=== PATIENT | female | born 1995 | race Two or more races ===

== ENCOUNTER 2019-08-27 10:32 | Observation (INO) | payer SELFPAY ==
[2019-08-27] MEDS ORDERED: IV RINGERS,LACTATED 1000ML 1,000 ML IV SCH (10:48)
[2019-08-27 11:09] LABS: BILIRUBIN,URINE NEGATIVE (NEG); CLARITY,URINE CLEAR; COLOR,URINE YELLOW; NITRITE,URINE NEGATIVE (NEG); PH,URINE 6.5; PROTEIN,URINE NEGATIVE (NEG-TRACE); UROBILINOGEN,URINE 0.2 mg/dL (0.2 mg/dL)
[2019-08-27 11:17] LABS: SQUAMOUS EPITHELIAL CELL,UR MANY /LPF
[2019-08-27 11:18] LABS: BACTERIA,URINE FEW /HPF (0-FEW); RBC,URINE RARE /HPF (0-2)
== END 2019-08-27 17:04 | disposition home or self-care (01) ==
LOC: 3 SO LND 10:32
PROVIDERS: ADMIT Obstetrics & Gynecology; ATTEND Obstetrics & Gynecology
DX: O62.9 Abnormality of forces of labor, unspecified (principal); Z3A.37 37 weeks gestation of pregnancy
CPT/HCPCS: 81001; G0378; G0379

== ENCOUNTER 2019-08-27 22:47 | Observation (INO) | payer SELFPAY ==
[2019-08-27] MEDS ORDERED: ACETAMINOPHEN 325 MG TABLET. PO PRN (23:00)
[2019-08-27] MEDS ORDERED: IV RINGERS,LACTATED 1000ML 1,000 ML IV SCH (23:00)
[2019-08-27] MEDS ORDERED: IV NORMAL SALINE 1000ML BAG 1,000 ML IV SCH (23:00)
[2019-08-27 23:09] LABS: BILIRUBIN,URINE NEGATIVE (NEG); CLARITY,URINE CLOUDY; COLOR,URINE YELLOW; NITRITE,URINE NEGATIVE (NEG); PROTEIN,URINE NEGATIVE (NEG-TRACE)
[2019-08-27 23:14] LABS: SQUAMOUS EPITHELIAL CELL,UR MOD /LPF
[2019-08-27 23:15] LABS: BACTERIA,URINE MODERATE /HPF (0-FEW)
[2019-08-27] MEDS ORDERED: ACETAMINOPHEN 500 MG TABLET PO PRN (23:30)
[2019-08-28] MEDS ORDERED: hydrOXYzine 25 MG TABLET PO PRN ×2 (04:30→04:45)
== END 2019-08-28 04:59 | disposition home or self-care (01) ==
LOC: 3 SO LND 22:47
PROVIDERS: ADMIT Obstetrics & Gynecology; ATTEND Obstetrics & Gynecology
DX: O62.9 Abnormality of forces of labor, unspecified (principal); Z3A.37 37 weeks gestation of pregnancy
CPT/HCPCS: 81001; 87086; G0378; G0379; J7120

== ENCOUNTER 2019-08-29 00:12 | Observation (INO) | payer SELFPAY ==
[2019-08-29] MEDS ORDERED: IV RINGERS,LACTATED 1000ML 1,000 ML IV SCH (00:30)
[2019-08-29 00:51] LABS: BILIRUBIN,URINE NEGATIVE (NEG); CLARITY,URINE CLEAR; COLOR,URINE YELLOW; NITRITE,URINE NEGATIVE (NEG); PROTEIN,URINE NEGATIVE (NEG-TRACE); UROBILINOGEN,URINE 0.2 mg/dL (0.2 mg/dL)
[2019-08-29 01:07] LABS: BACTERIA,URINE MANY /HPF (0-FEW); RBC,URINE OCC /HPF (0-2); SQUAMOUS EPITHELIAL CELL,UR MOD /LPF
[2019-08-29] MEDS ORDERED: ACETAMINOPHEN 500 MG TABLET PO ONE (01:30)
== END 2019-08-29 01:52 | disposition home or self-care (01) ==
LOC: 3 SO LND 00:12
PROVIDERS: ADMIT Obstetrics & Gynecology; ATTEND Obstetrics & Gynecology
DX: O62.9 Abnormality of forces of labor, unspecified (principal); Z3A.37 37 weeks gestation of pregnancy
CPT/HCPCS: 81001; 87086; G0378; G0379

== ENCOUNTER 2019-08-29 13:28 | Inpatient (IN) | payer SELFPAY ==
[~2019-08-29] VITALS: Ht 165.1 cm; Wt 70.3 kg
[2019-08-29] MEDS ORDERED: IV RINGERS,LACTATED 1000ML 1,000 ML IV SCH (13:40)
[2019-08-29] MEDS ORDERED: 0.9 % SODIUM CHLORIDE 10 ML DISP.SYRIN. IV PRN ×2 (13:45→16:00)
[2019-08-29] MEDS ORDERED: OXYTOCIN 30 UNIT/500 ML PREMIX 500 ML IV PRN ×3 (13:45→16:00)
[2019-08-29] MEDS ORDERED: ONDANSETRON PF 4 MG/2 ML VIAL. IV PRN (13:45)
[2019-08-29] MEDS ORDERED: NALBUPHINE 10 MG/ML AMPUL. IV PRN (13:45)
[2019-08-29] MEDS ORDERED: miSOPROStol 200 MCG TABLET PR PRN (13:45)
[2019-08-29] MEDS ORDERED: LIDOCAINE 1% PF 30 ML VIAL. INJ PRN (13:45)
[2019-08-29] MEDS ORDERED: fentaNYL PF VIAL 100 MCG/2 ML VIAL IV PRN (13:45)
[2019-08-29] MEDS ORDERED: TERBUTALINE 1 MG/ML VIAL. IV PRN (13:45)
[2019-08-29] MEDS ORDERED: CITRIC ACID/SODIUM CITRATE 30 ML SOLUTION. PO PRN (13:45)
[2019-08-29] MEDS ORDERED: MAG HYDROX/ALUMINUM HYD/SIMETH 30 ML ORAL.SUSP PO PRN ×2 (13:45→16:00)
[2019-08-29 14:17] LABS: BASO % 0 % (0-3); EOS % 0 % (0-3); HEMATOCRIT 35.6 % (36.0-47.0); HEMOGLOBIN 12.1 g/dL (12.0-15.5); LYMPH # 0.7 x10^3/uL (1.0-4.8); LYMPH % 5 % (24-48); MEAN CORPUSCULAR HEMOGLOBIN 31 pg (25-35); MEAN CORPUSCULAR HGB CONC 34 g/dL (31-37); MEAN CORPUSCULAR VOLUME 92 fL (79-100); MONO # 0.7 x10^3/uL (0.0-1.1); MONO % 5 % (0-9); NEUT # 12.9 x10^3/uL (1.8-7.7); NEUT % 90 % (31-73); PLATELET COUNT 218 x10^3/uL (140-400); RED BLOOD COUNT 3.88 x10^6/uL (3.50-5.40); RED CELL DISTRIBUTION WIDTH 13.4 % (11.5-14.5); WHITE BLOOD COUNT 14.3 x10^3/uL (4.0-11.0)
[2019-08-29 15:14] LABS: % BANDS 4 % (0-9); % LYMPHS 4 % (24-48); % METAS 1 % (0-0); % MONOS 2 % (0-10); % MYELOS 1 % (0-0); % SEGS 88 % (35-66)
[2019-08-29 15:15] LABS: PLT ESTIMATE ADEQUATE (ADEQUATE)
[2019-08-29 15:16] LABS: TOXIC GRANULATION SLIGHT
--- NOTE | 2019-08-29 15:54 | PDOC1 ---
OB - History Hx of Present Care: Good Care Ultrasounds: Normal mid trimester US Obstetrical Complications: None Medical Complications: None Past Family/Social History * Past Medical, Surgical, Family and Obstetric Histories reviewed from chart. Rubella: Immune RPR/VDRL: Negative GBS Status: Negative HBsAG: Negative OB - Chief Complaint & HPI Date of Admission: Date of Admission: Aug 29, 2019 at 13:28 Chief Complaint/History : 1 Para: 0 EGA: 37 Reason for admission: active labor Admission Nurse Assessment Rev: Yes OB - Admission Exam Physical Exam HEENT: Normal Heart: Regular Rate Lungs: Clear Abdomen: Gravid, Non tender, Soft Extremities: Edema Reflexes: Normal Cervical Dilatation: 5cm Effacement: 75% Station: -2 Membranes: Intact Accelerations: Accelerations Present Decelerations: No decelerations Contractions on Admission: < 5 Minutes Apart Intensity: Firm Text A: 37 wks IUP Active labor P: Admit labor management. ANJEL SPIVEY Jr, MD Aug 29, 2019 15:54
--- NOTE | 2019-08-29 15:55 | PDOC ---
VAGINAL DELIVERY DATE DATE: 08/29/19 TIME: 15:54 : 1 Para: 1 EGA: 37 VAGINAL DELIVERY: VTX VACCUM ASSISTED: No PLACENTA: Spontaneous 8/9 SEX: Female WEIGHT Weight [ 2390 gm] Nuchal Cord: No Amniotic Fluid: Clear PAIN: Natural EPISIOTOMY: Yes (2nd degree episiotomy) EXTENSION: No REPAIRED WITH 2-0 vicryl EBL 400 ml COMPLICATIONS none CONDITION pt. stable Signs of Intrauterine Infectio: None Shoulder Dystocia: No ANJEL SPIVEY Jr, MD Aug 29, 2019 15:55
[2019-08-29] MEDS ORDERED: DOCUSATE SODIUM 100 MG CAPSULE. PO PRN (16:00)
[2019-08-29] MEDS ORDERED: HYDROCORTISONE 1% TOPICAL OINTMENT 30GM TUBE. TP PRN (16:00)
[2019-08-29] MEDS ORDERED: diphenhydrAMINE HCL 25 MG CAPSULE PO PRN (16:00)
[2019-08-29] MEDS ORDERED: PHENYLEPH/MINERAL OIL/PETROLAT RECTAL OINTMENT TUBE. RC PRN (16:00)
[2019-08-29] MEDS ORDERED: oxyCODONE/APAP 5/325 1 TAB TABLET PO PRN (16:00)
[2019-08-29] MEDS ORDERED: ZOLPIDEM 5 MG TABLET. PO PRN (16:00)
[2019-08-29] MEDS ORDERED: MMR per PROTOCOL. MC PRN (16:00)
[2019-08-29] MEDS ORDERED: BENZOCAINE 20% TOPICAL AEROSOL SPRAY 57GM CAN. TP PRN (16:00)
[2019-08-29] MEDS ORDERED: ACETAMINOPHEN 325 MG TABLET. PO PRN (16:00)
[2019-08-29] MEDS ORDERED: SIMETHICONE 80 MG TAB.CHEW PO PRN (16:00)
[2019-08-29] MEDS ORDERED: MAGNESIUM HYDROXIDE 2,400 MG/30 ML ORAL.SUSP. PO PRN (16:00)
[2019-08-29] MEDS ORDERED: IBUPROFEN 400 MG TABLET. PO PRN (16:00)
[2019-08-29] MEDS: IBUPROFEN 400 MG TABLET. PO PRN (16:02)
[2019-08-29 21:00] VITALS: BP 104/60
[2019-08-30 01:50] VITALS: BP 105/62
[2019-08-30 05:55] LABS: BASO % 0 % (0-3); EOS # 0.1 x10^3/uL (0.0-0.7); EOS % 1 % (0-3); HEMATOCRIT 29.6 % (36.0-47.0); HEMOGLOBIN 10.1 g/dL (12.0-15.5); LYMPH # 1.7 x10^3/uL (1.0-4.8); LYMPH % 19 % (24-48); MEAN CORPUSCULAR HEMOGLOBIN 32 pg (25-35); MEAN CORPUSCULAR HGB CONC 34 g/dL (31-37); MEAN CORPUSCULAR VOLUME 92 fL (79-100); MONO # 0.8 x10^3/uL (0.0-1.1); MONO % 8 % (0-9); NEUT # 6.5 x10^3/uL (1.8-7.7); NEUT % 72 % (31-73); PLATELET COUNT 175 x10^3/uL (140-400); RED BLOOD COUNT 3.21 x10^6/uL (3.50-5.40); RED CELL DISTRIBUTION WIDTH 13.5 % (11.5-14.5); WHITE BLOOD COUNT 9.1 x10^3/uL (4.0-11.0)
[2019-08-30] MEDS: IBUPROFEN 400 MG TABLET. PO PRN ×2 (05:57→15:21)
[2019-08-30 06:02] VITALS: BP 110/69
[2019-08-30] MEDS ORDERED: FERROUS SULFATE 325 MG TABLET. PO SCH (08:00)
--- NOTE | 2019-08-30 13:32 | PDOC ---
OB Progress Note Date of Service 08/30/19 Time of Evaluation 1330 Notes Pt. feeling well. No complaints. Lab Laboratory Tests Test 08/29/19 13:53 08/30/19 05:30 White Blood Count 14.3 x10^3/uL (4.0-11.0) 9.1 x10^3/uL (4.0-11.0) Red Blood Count 3.88 x10^6/uL (3.50-5.40) 3.21 x10^6/uL (3.50-5.40) Hemoglobin 12.1 g/dL (12.0-15.5) 10.1 g/dL (12.0-15.5) Hematocrit 35.6 % (36.0-47.0) 29.6 % (36.0-47.0) Mean Corpuscular Volume 92 fL (79-100) 92 fL (79-100) Mean Corpuscular Hemoglobin 31 pg (25-35) 32 pg (25-35) Mean Corpuscular Hemoglobin Concent 34 g/dL (31-37) 34 g/dL (31-37) Red Cell Distribution Width 13.4 % (11.5-14.5) 13.5 % (11.5-14.5) Platelet Count 218 x10^3/uL (140-400) 175 x10^3/uL (140-400) Neutrophils (%) (Auto) 90 % (31-73) 72 % (31-73) Lymphocytes (%) (Auto) 5 % (24-48) 19 % (24-48) Monocytes (%) (Auto) 5 % (0-9) 8 % (0-9) Eosinophils (%) (Auto) 0 % (0-3) 1 % (0-3) Basophils (%) (Auto) 0 % (0-3) 0 % (0-3) Neutrophils # (Auto) 12.9 x10^3/uL (1.8-7.7) 6.5 x10^3/uL (1.8-7.7) Lymphocytes # (Auto) 0.7 x10^3/uL (1.0-4.8) 1.7 x10^3/uL (1.0-4.8) Monocytes # (Auto) 0.7 x10^3/uL (0.0-1.1) 0.8 x10^3/uL (0.0-1.1) Eosinophils # (Auto) 0.0 x10^3/uL (0.0-0.7) 0.1 x10^3/uL (0.0-0.7) Basophils # (Auto) 0.0 x10^3/uL (0.0-0.2) 0.0 x10^3/uL (0.0-0.2) Segmented Neutrophils % 88 % (35-66) Band Neutrophils % 4 % (0-9) Lymphocytes % 4 % (24-48) Monocytes % 2 % (0-10) Metamyelocytes % 1 % (0-0) Myelocytes % 1 % (0-0) Toxic Granulation Slight Platelet Estimate Adequate (ADEQUATE) Treponema pallidum Antibody Nonreactive (Nonreactive) Laboratory Tests Test 08/29/19 13:53 08/30/19 05:30 White Blood Count 14.3 x10^3/uL (4.0-11.0) 9.1 x10^3/uL (4.0-11.0) Red Blood Count 3.88 x10^6/uL (3.50-5.40) 3.21 x10^6/uL (3.50-5.40) Hemoglobin 12.1 g/dL (12.0-15.5) 10.1 g/dL (12.0-15.5) Hematocrit 35.6 % (36.0-47.0) 29.6 % (36.0-47.0) Mean Corpuscular Volume 92 fL (79-100) 92 fL (79-100) Mean Corpuscular Hemoglobin 31 pg (25-35) 32 pg (25-35) Mean Corpuscular Hemoglobin Concent 34 g/dL (31-37) 34 g/dL (31-37) Red Cell Distribution Width 13.4 % (11.5-14.5) 13.5 % (11.5-14.5) Platelet Count 218 x10^3/uL (140-400) 175 x10^3/uL (140-400) Neutrophils (%) (Auto) 90 % (31-73) 72 % (31-73) Lymphocytes (%) (Auto) 5 % (24-48) 19 % (24-48) Monocytes (%) (Auto) 5 % (0-9) 8 % (0-9) Eosinophils (%) (Auto) 0 % (0-3) 1 % (0-3) Basophils (%) (Auto) 0 % (0-3) 0 % (0-3) Neutrophils # (Auto) 12.9 x10^3/uL (1.8-7.7) 6.5 x10^3/uL (1.8-7.7) Lymphocytes # (Auto) 0.7 x10^3/uL (1.0-4.8) 1.7 x10^3/uL (1.0-4.8) Monocytes # (Auto) 0.7 x10^3/uL (0.0-1.1) 0.8 x10^3/uL (0.0-1.1) Eosinophils # (Auto) 0.0 x10^3/uL (0.0-0.7) 0.1 x10^3/uL (0.0-0.7) Basophils # (Auto) 0.0 x10^3/uL (0.0-0.2) 0.0 x10^3/uL (0.0-0.2) Segmented Neutrophils % 88 % (35-66) Band Neutrophils % 4 % (0-9) Lymphocytes % 4 % (24-48) Monocytes % 2 % (0-10) Metamyelocytes % 1 % (0-0) Myelocytes % 1 % (0-0) Toxic Granulation Slight Platelet Estimate Adequate (ADEQUATE) Treponema pallidum Antibody Nonreactive (Nonreactive) Medications Current Medications Sodium Chloride (Normal Saline Flush) 3 ml QSHIFT PRN IV AFTER MEDS AND BLOOD DRAWS; Start 08/29/19 at 13:45 Ringer's Solution 1,000 ml @ 125 mls/hr Q8H IV Last administered on 08/29/19at 14:12; Start 08/29/19 at 13:40 Nalbuphine HCl (Nubain) 10 mg PRN Q1HR PRN IV Severe labor pain; Start 08/29/19 at 13:45 Fentanyl Citrate (Fentanyl 2ml Vial) 100 mcg PRN Q30MIN PRN IV Severe pain Last administered on 08/29/19at 14:11; Start 08/29/19 at 13:45 Ondansetron HCl (Zofran) 4 mg PRN Q4HRS PRN IV NAUSEA/VOMITING; Start 08/29/19 at 13:45 Al Hydroxide/Mg Hydroxide (Mylanta Plus Xs) 30 ml PRN Q4HRS PRN PO HEARTBURN / GAS; Start 08/29/19 at 13:45 Citric Acid/ Sodium Citrate (Bicitra) 30 ml 1X PRN PRN PO DYSPEPSIA; Start 08/29/19 at 13:45; Stop 08/30/19 at 13:44 Terbutaline Sulfate (Brethine) 0.25 mg 1X PRN PRN IV SEE COMMENTS; Start 08/29/19 at 13:45; Stop 08/30/19 at 13:44 Lidocaine HCl (Xylocaine 1% Pf 30ml Vial) 30 ml 1X PRN PRN INJ SEE COMMENTS Last administered on 08/29/19at 16:03; Start 08/29/19 at 13:45; Stop 08/31/19 at 13:44 Oxytocin/Sodium Chloride 500 ml @ 0 mls/hr CONT PRN IV SEE I/O RECORD Last administered on 08/29/19at 16:02; Start 08/29/19 at 13:45 Oxytocin/Sodium Chloride 500 ml @ 0 mls/hr CONT PRN PRN IV Post delivery bleeding; Start 08/29/19 at 13:45 Ibuprofen (Motrin) 800 mg PRN Q6HRS PRN PO PAIN Last administered on 08/30/19at 05:57; Start 08/29/19 at 13:45 Misoprostol (Cytotec 200mcg Tab) 800 mcg 1X PRN NC BLEEDING; Start 08/29/19 at 13:45 Sodium Chloride (Normal Saline Flush) 10 ml QSHIFT PRN IV AFTER MEDS AND BLOOD DRAWS; Start 08/29/19 at 16:00 Oxytocin/Sodium Chloride 500 ml @ 62.5 mls/hr CONT PRN IV SEE I/O RECORD; Start 08/29/19 at 16:00; Stop 08/29/19 at 23:59; Status DC Acetaminophen (Tylenol) 650 mg PRN Q6HRS PRN PO MILD PAIN / TEMP; Start 08/29/19 at 16:00 Ibuprofen (Motrin) 800 mg PRN Q8HRS PRN PO INFLAMMATION/PAIN PREVENTION; Start 08/29/19 at 16:00 Docusate Sodium (Colace) 100 mg PRN BID PRN PO HARD STOOLS; Start 08/29/19 at 16:00 Magnesium Hydroxide (Milk Of Magnesia) 2,400 mg PRN DAILY PRN PO CONSTIPATION; Start 08/29/19 at 16:00 Al Hydroxide/Mg Hydroxide (Mylanta Plus Xs) 30 ml PRN Q4HRS PRN PO HEARTBURN / GAS; Start 08/29/19 at 16:00 Simethicone (Gas-X) 80 mg PRN AFTMEALHC PRN PO GAS / BLOATING; Start 08/29/19 at 16:00 Diphenhydramine HCl (Benadryl) 25 mg PRN Q6HRS PRN PO ITCHING; Start 08/29/19 at 16:00 Benzocaine (Americaine) 1 spray PRN QID PRN TP TOPICAL PAIN; Start 08/29/19 at 16:00 Phenyleph/Shark Oil/Min Oil/Petrol (Preparation H) 1 gabi PRN QID PRN RC RECTAL PAIN; Start 08/29/19 at 16:00 Hydrocortisone (Cortaid) 1 gabi PRN QID PRN TP PERINEAL PAIN; Start 08/29/19 at 16:00 Ferrous Sulfate (Feosol) 325 mg BIDWMEALS PO ; Start 08/30/19 at 08:00 Zolpidem Tartrate (Ambien) 5 mg PRN QHS PRN PO INSOMNIA, MAY REPEAT X1; Start 08/29/19 at 16:00 Info (Do NOT chart on this placeholder) 1 ea 1X PRN PRN MC SEE COMMENTS; Start 08/29/19 at 16:00 Info (Do NOT chart on this placeholder) 1 ea 1X PRN PRN MC SEE COMMENTS; Start 08/29/19 at 16:00 Oxycodone/ Acetaminophen (Percocet 5/325) 2 tab PRN Q4HRS PRN PO MODERATE PAIN, SEVERE PAIN Last administered on 08/29/19at 17:23; Start 08/29/19 at 16:00 Exam Abd: soft, non tender, fundus firm Assessment PPD#1 s/p VD Plan of Care: Continue current Tx, Mgmt ANJEL SPIVEY Jr, MD Aug 30, 2019 13:32
[2019-08-30 17:23] VITALS: BP 117/68
[2019-08-30] MEDS ORDERED: FLU VAX QS 2019-20 (36MOS+)/PF 0.5 ML SYRINGE. VAX IM ONE (17:30)
[2019-08-30 20:00] VITALS: BP 145/83
[2019-08-31 05:20] VITALS: BP 106/55
[2019-08-31] MEDS: IBUPROFEN 400 MG TABLET. PO PRN (09:20)
--- NOTE | 2019-08-31 10:38 | NUR ---
Patient received Flu vaccine at [facility] Addendum: 08/31/19 at 1039 by CHANG SOUTH RN Amended: Links added.
[2019-08-31 11:04] VITALS: BP 115/74
--- NOTE | 2019-08-31 11:05 | NUR ---
Discharge Discharge instructions given to patient at this time, no question or concerns noted to follow up in 6 weeks. Baby to stay admitted, mother given Boarder Policy, agreed and signed placed in chart and given to Nursery staff. Will continue to monitor.
== END 2019-08-31 13:10 | disposition home or self-care (01) | DRG 807 ==
LOC: 3 SO LND 13:28 → OBSVTOIN 13:28 → 3 NORTH 18:45
PROVIDERS: ADMIT Obstetrics & Gynecology; ATTEND Obstetrics & Gynecology
PROC: 10E0XZZ Delivery of Products of Conception, External Approach (ICD-10-PCS; principal; 2019-08-29)
PROC: 0W8NXZZ Division of Female Perineum, External Approach (ICD-10-PCS; 2019-08-29)
DX: O80 Encounter for full-term uncomplicated delivery (principal); Z37.0 Single live birth; Z3A.37 37 weeks gestation of pregnancy
CPT/HCPCS: 36415; 85007; 85025; 86592; 86850; 86900; 86901; J2590; J3010; J7120; G0378